=== PATIENT | female | born 1945 | race Caucasian/White ===

== ENCOUNTER → 2017-11-21 | Outpatient (CLI) | payer OTHER, BC ==
[2017-11-21 11:29] LABS: BASOPHIL % 0.2 % (0-2); PLATELET COUNT 236 x10^3mcL (130-400); RED CELL DISTRIBUTION WIDTH 11.9 % (11.5-14.5)
[2017-11-21 11:51] LABS: CALCIUM 8.8 mg/dL (8.5-10.1); CARBON DIOXIDE 32.3 mmol/L (21-32); CHLORIDE SERUM 100 mmol/L (98-107); CREATININE SERUM 0.8 mg/dL (0.6-1.0); GFR1 > 60 mL/min; GLUCOSE SERUM 96 mg/dL (74-106); POTASSIUM SERUM 4.2 mmol/L (3.5-5.1); SODIUM SERUM 138 mmol/L (136-145)
== END | disposition home or self-care (01) ==
LOC: RD 10:21
DX: M65.312 Trigger thumb, left thumb (principal)

== ENCOUNTER → 2019-07-09 | Outpatient (CLI) | payer OTHER, BC | END | disposition home or self-care (01) | LOC: MA 10:00 | PROC: BH02ZZZ Plain Radiography of Bilateral Breasts (ICD-10-PCS; principal; 2019-07-09) | DX: Z12.31 Encounter for screening mammogram for malignant neoplasm of breast (principal); D69.2 Other nonthrombocytopenic purpura; I77.6 Arteritis, unspecified | CPT/HCPCS: 77067 ==